=== PATIENT | female | born 1955 | race Caucasian/White ===

== ENCOUNTER 2016-12-26 17:03 | Inpatient (IN) | payer MEDICARE, MEDICAID ==
[~2016-12-26] VITALS: Ht 166.4 cm; Wt 82.0 kg
[~2016-12-26 17:03] MED LIST: ADULT LOW DOSE81 M1 PO; ADVAIR 25028 BLISTER INH; ADVIL200 MG; AGGRENOX CAP1 BOTTLE; ALAWAY10 M1 EACH EYE; AMBIEN5 M1 PO; AMBIEN5 MG PO; AMITRIPTYLINE H25 MG; AMOXICILLIN500 M2 PO; AMOXICILLIN500 MG; AMPICILLIN TRI500 M1 PO; AMPICILLIN500 MG PO; ANTIBIOTIC; ASPIR 8181 MG; ASPIRIN325 MG; ASPIRIN325 MG PO; ASPIRIN81 MG PO; ASTELIN137 MCG NS; ASTEPRO205.5 MCG/ NS; ATENOLOL25 MG PO; ATIVAN0.5 MG PO; ATIVAN1 MG; ATIVAN2 MG PO; ATORVASTATIN CA40 M1 PO; ATROVENT HFA1 PUFF INH; AUGMENTIN; AUGMENTIN 875-1 EAC1 PO; AUGMENTIN 875-1 EAC2 PO; AUGMENTIN 875-11 TAB PO; AUGMENTIN875 MG PO; AVENTYL HCL25 MG; AVINZA90 MG; BACLOFEN; BACLOFEN10 MG; BACLOFEN10 MG PO; BACTRIM DS TAB1 EAC2 PO; BACTRIM DS TABL1 TAB; BETAGAN5 ML EACH EYE; BETAGAN5 ML OP; BISCOLAX10 MG RC; BUDEPRION SR150 MG; CARBAMAZEPINE200 MG; CARVEDILOL12.5 MG PO; CEFAZOLIN SODIUM1 GM IV; CEFDINIR300 MG PO; CENTURY PO; CERTA PLUS TAB1 EACH PO; CERTAVITE W/LU1 EACH PO; CERTAVITE-LUTE1 EAC2 PO; CETIRIZINE HCL10 M1 PO; CIPRO500 M1 PO; CIPRODEX OTIC7.5 M1 OT; CLARITIN10 M8 PO; CLARITIN10 MG; CLONAZEPAM1 M1 PO; CLOPIDOGREL75 M1 PO; COLACE100 M1 PO; COREG12.5 M1 PO; COREG12.5 MG PO; COREG25 M1 PO; COREG6.25 MG PO; COUGHTAB200 M1 PO; CRANBERRY200 M1 PO; CYCLOBENZAPRINE10 M1 PO; CYMBALTA60 M1 PO; CYMBALTA60 MG PO; DECONGEST PO; DEPAKENE250 MG; DEPAKOTE ER250 MG; DEPAKOTE ER250 MG PO; DEPAKOTE250 MG PO; DETROL LA2 MG PO; DIFLUCAN150 MG PO; DILAUDID2 M1 PO; DITROPAN XL5 M3 PO; DOC-Q-LACE100 MG; DULCOLAX10 MG RC; DULOXETINE HCL60 M1 PO; DUONEB 2.5-0.5 M3 ML IH; EFFEXOR XR150 MG; EFFEXOR XR150 MG PO; EFFEXOR XR150 MG/TAB PO; EFFEXOR75 MG; EFFEXOR75 MG PO; EFFIENT10 MG/TAB PO; ELAVIL25 MG; FENTANYL1 EA11 TP; FENTANYL1 EAC3 TD; FENTANYL1 PATC; FLEXERIL10 MG; FLEXERIL10 MG PO; FLOMAX0.4 M1 PO; FLONASE ALLERG9.9 ML NS; FLONASE16 GM; FLONASE16 GM NS; FLUTICASONE PRO16 G1 INH; FUROSEMIDE20 MG PO; FUROSEMIDE40 M1 PO; GABAPENTIN300 MG PO; GABAPENTIN600 MG PO; GAS RELIEF125 M4 PO; GUAIFENESIN400 M1 PO; HALOPERIDOL0.5 MG PO; HIPREX1 GM PO; HYCOTUSS EXPEC480 ML PO; HYDROCODON-ACE1 EAC5 PO; HYOSCYAMINE0.125 M3 SL; IMDUR30 MG; IPRAT-ALBUT 0.5-3 ML IH; ISOSORBIDE DINI20 M1 PO; JUVEN PACKET1 EACH PO; K-DUR20 ME1 PO; K-DUR20 MEQ PO; KEFLEX500 MG; KLONOPIN0.5 MG; KLONOPIN1 MG; KLONOPIN1 MG PO; KLONOPIN2 MG; KLONOPIN2 MG PO; KLOR-CON M2020 MEQ; LACTASE ENZ PO; LACTASE ENZYME1 TAB PO; LASIX20 M1 PO; LASIX20 MG; LASIX20 MG PO; LASIX40 M1 PO; LASIX40 MG; LASIX40 MG PO; LEVAQUIN500 MG PO; LEVAQUIN750 M1 PO; LEVOXYL75 MCG PO; LIDODERM30 EA TP; LIPITOR40 M1 PO; LISINOPRIL10 MG; LISINOPRIL10 MG PO; LISINOPRIL2.5 MG PO; LISINOPRIL5 MG; LOPRESSOR50 MG; LOPRESSOR50 MG PO; LORAZEPAM PO; LORAZEPAM2 MG IM; LORAZEPAM2 MG/ML; LORTAB 5/500 TA1 TAB; LYRICA100 MG PO; LYRICA50 MG PO; LYRICA75 MG; MAALOX SUSPENSI30 ML PO; MAGNESIUM CITR296 M1 PO; MEGACE400 MG/10; MELATIN3 MG PO; MELATONIN5 M7 PO; MELOXICAM7.5 M1 PO; METAMUCIL660 GM PO; METHADONE10 MG/ML PO; MIRALAX17 G2 PO; MORPHINE S20 MG/1 M1 PO; MORPHINE SULFAT30 M7 PO; MS CONTIN30 MG; MS CONTIN60 MG; MUCINEX DM ER1 EAC1 PO; MUCINEX100 MG PO; MUCINEX600 MG; MUCINEX600 MG PO; MULTIVITAMIN1 CAP; MYRBETRIQ25 M1 PO; NASACORT10.8 M1; NASONEX17 G1; NEURONTIN100 M1 PO; NEURONTIN100 MG; NEURONTIN300 M1 PO; NEURONTIN300 MG PO; NICOTINE TD; NITROGLYCERIN0.3 MG SL; NITROGLYCERIN0.4 M2 SL; NITROGLYCERIN0.4 MG SL; NITROQUICK0.4 MG SL; NITROSTAT0.4 MG SL; NON ASPIRIN650 MG PO; NORCO 5/325 TAB1 TAB PO; NORCO 5/3251 TA1 PO; NORCO 7.5-3251 EACH PO; NORFLEX100 MG PO; NORFLEX100 MG/TA1 PO; NORTRIPTYLIHNE25 MG; NORTRIPTYLINE H50 MG; NORTRIPTYLINE H50 MG PO; NYSTATIN15 GM TP; OMEPRAZOLE20 MG PO; OMEPRAZOLE40 M2 PO; OMNICEF300 MG; ORPHENADRINE C100 MG PO; OXYBUTYNIN CHLOR5 M2 PO; OXYBUTYNIN CHLOR5 M3 PO; OXYCODONE HCL5 M1 PO; PANTOPRAZOLE SO40 M3 PO; PERCOCET 10-321 EACH PO; PERCOCET 5-3251 EACH PO; PLAVIX75 M1 PO; PLAVIX75 MG; PLAVIX75 MG PO; PRILOSEC20 MG PO; PRIMIDONE50 M1 PO; PRINIVIL20 MG; PRINIVIL5 M1 PO; PROAIR HFA8.5 GM INH; PROPOXACET N; PROVIGIL100 MG PO; PROVIGIL200 MG; PROVIGIL200 MG PO; Q-TUSSIN100 MG/5 M; RANEXA500 MG PO; SIMVASTATIN10 MG PO; SINGULAIR10 M1 PO; SINGULAIR10 MG PO; SPIRIVA18 MC1 IH; TEGRETOL200 MG; TIMOPTIC2.5 M; TIZANADINE HCL4 MG PO; TOPAMAX100 MG; TOPAMAX25 MG PO; TOPAMAX50 MG; TOPAMAX50 MG PO; TOPROL XL25 MG; TRAMADOL HCL50 MG; TRILEPTAL300 MG; TROSPIUM CHLORI20 M1 PO; TYLENOL EXTRA500 M1 PO; TYLENOL325 M2 PO; TYLENOL650 MG PO; TYSABRI300 MG/15; ULTRAM50 MG PO; VALIUM2 M1 PO; VALIUM2 MG PO; VENTOLIN HFA18 GM IH; VITAMIN C500 M3 PO; VITAMIN C500 MG PO; WELLBUTRIN SR150 MG; XANAX0.25 M1 PO; ZANAFLEX2 M PO; ZANAFLEX4 M PO; ZANAFLEX4 M1 PO; ZESTRIL10 MG PO; ZESTRIL2.5 M2 PO; ZESTRIL2.5 M3 PO; ZITHROMAX250MG Z-PAK; ZOCOR10 MG PO; ZOCOR40 MG; ZOCOR40 MG PO; ZYRTEC10 M7 PO; ZYRTEC1010 PO; [UNRECOGNIZED DRUG - CODE] VG; [UNRECOGNIZED DRUG - OTHER]; [UNRECOGNIZED DRUG - OTHER] NS; [UNRECOGNIZED DRUG - OTHER] PO; [UNRECOGNIZED DRUG - REMARK]; [UNRECOGNIZED DRUG - REMARK]
[2016-12-26 17:59] LABS: BASO % 0.4 % (0-2); EOSINOPHIL ABSOLUTE COUNT 0.2 tho/cmm (0.0-0.7); HCT-HEMATOCRIT 42.7 % (34.0-49.0); HGB-HEMOGLOBIN 14.3 gm/dl (12.0-15.5); IMMATURE GRANULOCYTES ABSOLUTE 0.02 tho/cmm (0-0.03); IMMATURE GRANULOCYTES PERCENT 0.2 % (0-0.3); LYMPH % 16.6 % (20-45); LYMPH ABSOLUTE COUNT 1.6 tho/cmm (0.8-4.5); MCH (MEAN CORPUSCULAR HGB) 27.8 pg (28.0-32.0); MCHC MEAN CORPUSCULAR HGB CONC 33.5 % (32.0-36.0); MCV (MEAN CELL VOLUME) 82.9 fl (82.0-96.0); MEAN PLATELET VOLUME 11.2 cmc (9.4-12.4); MONO % 7.1 % (0-12); MONOCYTE ABSOLUTE COUNT 0.7 tho/cmm (0.0-1.2); NEUTROPHIL ABSOLUTE COUNT 7.2 tho/cmm (1.6-8.0); NEUTROPHIL-AUTOMATED 7.2 tho/cmm (1.6-8.0); NEUTROPHILS % 73.7 % (40-80); PLATELET COUNT 268 tho/cmm (150-450); RED BLOOD COUNT 5.15 mil/cmm (4.00-5.20); RED CELL DISTRIBUTION WIDTH 16.3 % (12.4-16.4); WHITE BLOOD COUNT 9.8 tho/cmm (4.0-10.0)
[2016-12-26 18:05] LABS: PROTHROMBIN TIME 11.9 SECONDS (9.0-13.6)
[2016-12-26 18:12] LABS: URINE APPEARANCE CLOUDY; URINE BILIRUBIN NEGATIVE (NEG); URINE BLOOD MODERATE (NEG); URINE COLOR PALE YELLOW; URINE GLUCOSE (UA) NEGATIVE (NEG); URINE KETONE NEGATIVE (NEG); URINE LEUKOCYTE ESTERASE POSITIVE (NEG); URINE NITRITE POSITIVE (NEG); URINE PROTEIN MODERATE (NEG); URINE SPECIFIC GRAVITY 1.005 (1.003-1.030)
[2016-12-26 18:20] LABS: URINE AMORPHOUS 3+; URINE BACTERIA 1+; URINE EPITHELIAL CELLS 0 /[HPF] (0-10); URINE WBC 25-30 /[HPF] (0-5)
[2016-12-26 18:20] LABS: ALB/GLOB RATIO 0.9 (0.8-2.0); ALBUMIN 3.3 g/dl (3.5-5.0); ALKALINE PHOSPHATASE 91 U/L (33-138); ALT/SGPT 16 U/L (12-78); ANION GAP 11 mmol/L (0-20); BILIRUBIN,TOTAL 0.3 mg/dl (0-1.5); BLOOD UREA NITROGEN 12 mg/dl (6-24); CALCIUM 8.2 mg/dl (8.5-10.5); CARBON DIOXIDE-VENOUS 27 mmol/L (22-32); CHLORIDE 108 mmol/l (96-110); CREATININE 0.95 mg/dl (0.50-1.10); GLUCOSE 108 mg/dL (70-110); LIPASE 131 U/L (73-393); POTASSIUM 3.1 mmol/L (3.7-5.1); SODIUM 143 mmol/L (135-145); eGFR VALUE FOR BLACK 74 mL/Min
[2016-12-26 18:22] LABS: AST/SGOT <5 U/L (10-40)
[2016-12-26] MEDS ORDERED: TYLENOL EXTRA500 M1 PO (19:33)
[2016-12-26] MEDS ORDERED: [UNRECOGNIZED DRUG - OTHER] PO (19:34)
[2016-12-26] MEDS ORDERED: ATROVENT HFA1 PUFF INH (19:35)
[2016-12-26] MEDS ORDERED: XANAX0.25 M1 PO (19:35)
[2016-12-26] MEDS ORDERED: ALAWAY10 M1 OP (19:35)
[2016-12-26] MEDS ORDERED: CETIRIZINE HCL10 M1 PO (19:36)
[2016-12-26] MEDS ORDERED: THERA-M1 EAC1 PO (19:36)
[2016-12-26] MEDS ORDERED: DOCUSATE SODIU100 M2 PO (19:37)
[2016-12-26] MEDS ORDERED: FUROSEMIDE40 M2 PO (19:39)
[2016-12-26] MEDS ORDERED: DULCOLAX10 MG PR (19:39)
[2016-12-26] MEDS ORDERED: GUAIFENESIN200 M3 PO (19:40)
[2016-12-26] MEDS ORDERED: LIPITOR40 M1 PO (19:41)
[2016-12-26] MEDS ORDERED: LYRICA200 M1 PO (19:41)
[2016-12-26] MEDS ORDERED: ALBUTEROL2.5 MG/3 M INH (19:41)
[2016-12-26] MEDS ORDERED: METHENAMINE HIPP1 G1 PO (19:42)
[2016-12-26] MEDS ORDERED: MELATONIN5 M5 PO (19:42)
[2016-12-26] MEDS ORDERED: SINGULAIR10 M1 PO (19:42)
[2016-12-26] MEDS ORDERED: NASACORT10.8 M1 (19:42)
[2016-12-26] MEDS ORDERED: NASONEX17 G1 (19:43)
[2016-12-26] MEDS ORDERED: OMEPRAZOLE20 M4 PO (19:44)
[2016-12-26] MEDS ORDERED: NITROGLYCERIN0.4 M2 SL (19:44)
[2016-12-26] MEDS ORDERED: ZOFRAN4 M2 PO (19:45)
[2016-12-26] MEDS ORDERED: OXYCODONE-ACET1 EAC4 PO (19:45)
[2016-12-26] MEDS ORDERED: UROCIT-K10 ME1 PO (19:46)
[2016-12-26] MEDS ORDERED: OXYCONTIN10 M2 PO (19:46)
[2016-12-26] MEDS ORDERED: SUDAFED30 M2 PO (19:47)
[2016-12-26] MEDS ORDERED: VENTOLIN HFA18 G2 PO (19:47)
[2016-12-27 06:18] LABS: BASO % 0.4 % (0-2); EOS % 2.9 % (0-7); EOSINOPHIL ABSOLUTE COUNT 0.3 tho/cmm (0.0-0.7); HGB-HEMOGLOBIN 12.7 gm/dl (12.0-15.5); IMMATURE GRANULOCYTES ABSOLUTE 0.03 tho/cmm (0-0.03); IMMATURE GRANULOCYTES PERCENT 0.3 % (0-0.3); LYMPH % 20.7 % (20-45); LYMPH ABSOLUTE COUNT 2.1 tho/cmm (0.8-4.5); MCH (MEAN CORPUSCULAR HGB) 27.3 pg (28.0-32.0); MCHC MEAN CORPUSCULAR HGB CONC 32.6 % (32.0-36.0); MCV (MEAN CELL VOLUME) 83.7 fl (82.0-96.0); MONO % 8.3 % (0-12); MONOCYTE ABSOLUTE COUNT 0.9 tho/cmm (0.0-1.2); NEUTROPHILS % 67.4 % (40-80); PLATELET COUNT 240 tho/cmm (150-450); RED BLOOD COUNT 4.66 mil/cmm (4.00-5.20); RED CELL DISTRIBUTION WIDTH 16.6 % (12.4-16.4); WHITE BLOOD COUNT 10.3 tho/cmm (4.0-10.0)
[2016-12-27 06:29] LABS: ALB/GLOB RATIO 0.9 (0.8-2.0); ALKALINE PHOSPHATASE 81 U/L (33-138); ALT/SGPT 14 U/L (12-78); ANION GAP 8 mmol/L (0-20); AST/SGOT 9 U/L (10-40); BLOOD UREA NITROGEN 12 mg/dl (6-24); CALCIUM 7.7 mg/dl (8.5-10.5); CARBON DIOXIDE-VENOUS 26 mmol/L (22-32); CHLORIDE 108 mmol/l (96-110); CREATININE 0.84 mg/dl (0.50-1.10); GLUCOSE 90 mg/dL (70-110); POTASSIUM 3.1 mmol/L (3.7-5.1); SODIUM 139 mmol/L (135-145); eGFR VALUE FOR BLACK 86 mL/Min
[2016-12-27 06:44] LABS: BILIRUBIN,TOTAL 0.5 mg/dl (0-1.5)
[2016-12-27 06:46] LABS: ESR-ERYTHROCYTE SED RATE 15 mm/hr (0-30)
[2016-12-27] MEDS ORDERED: COLACE100 M1 PO (14:45)
[2016-12-27] MEDS ORDERED: LASIX40 M1 PO (14:46)
[2016-12-27] MEDS ORDERED: FLONASE ALLERG9.9 ML (14:59)
[2016-12-27] MEDS ORDERED: PLAVIX75 M1 PO (15:00)
[2016-12-27] MEDS ORDERED: VALIUM2 M1 PO (15:00)
[2016-12-27] MEDS ORDERED: CYMBALTA30 M1 PO (15:02)
[2016-12-27] MEDS ORDERED: ULTRAM50 M1 PO (15:04)
[2016-12-27] MEDS ORDERED: MYRBETRIQ25 M1 PO (15:04)
[2016-12-27] MEDS ORDERED: ASPIRIN81 M1 PO (15:05)
[2016-12-27] MEDS ORDERED: VITAMIN C500 M3 PO (15:06)
[2016-12-28 04:55] LABS: ANION GAP 14 mmol/L (0-20); BLOOD UREA NITROGEN 10 mg/dl (6-24); CALCIUM 8.1 mg/dl (8.5-10.5); CARBON DIOXIDE-VENOUS 25 mmol/L (22-32); CHLORIDE 109 mmol/l (96-110); CREATININE 0.89 mg/dl (0.50-1.10); POTASSIUM 3.8 mmol/L (3.7-5.1); SODIUM 144 mmol/L (135-145); eGFR VALUE FOR BLACK 81 mL/Min
[2016-12-28 05:15] LABS: GLUCOSE 151 mg/dL (70-110)
[2016-12-28 14:15] LABS: BAL APPEARANCE CLOUDY (CLEAR); BAL COLOR PINK (COLORLESS)
[2016-12-28 14:18] LABS: BAL EOSINOPHILS 0 %; BAL LYMPHOCYTES 3 %; BAL NEUTROPHILS 6 %
[2016-12-29 05:33] LABS: HGB-HEMOGLOBIN 12.2 gm/dl (12.0-15.5); IMMATURE GRANULOCYTES ABSOLUTE 0.04 tho/cmm (0-0.03); IMMATURE GRANULOCYTES PERCENT 0.3 % (0-0.3); LYMPH ABSOLUTE COUNT 0.7 tho/cmm (0.8-4.5); MCH (MEAN CORPUSCULAR HGB) 27.5 pg (28.0-32.0); MCV (MEAN CELL VOLUME) 83.3 fl (82.0-96.0); MEAN PLATELET VOLUME 11.1 cmc (9.4-12.4); MONO % 3.9 % (0-12); MONOCYTE ABSOLUTE COUNT 0.6 tho/cmm (0.0-1.2); NEUTROPHIL ABSOLUTE COUNT 12.9 tho/cmm (1.6-8.0); NEUTROPHIL-AUTOMATED 12.9 tho/cmm (1.6-8.0); NEUTROPHILS % 90.8 % (40-80); PLATELET COUNT 263 tho/cmm (150-450); RED BLOOD COUNT 4.44 mil/cmm (4.00-5.20); RED CELL DISTRIBUTION WIDTH 16.5 % (12.4-16.4); WHITE BLOOD COUNT 14.2 tho/cmm (4.0-10.0)
[2016-12-29 06:00] LABS: ALB/GLOB RATIO 0.9 (0.8-2.0); ALBUMIN 3.1 g/dl (3.5-5.0); ALKALINE PHOSPHATASE 70 U/L (33-138); ALT/SGPT 16 U/L (12-78); ANION GAP 8 mmol/L (0-20); AST/SGOT 10 U/L (10-40); BILIRUBIN,TOTAL 0.5 mg/dl (0-1.5); BLOOD UREA NITROGEN 15 mg/dl (6-24); CALCIUM 7.8 mg/dl (8.5-10.5); CARBON DIOXIDE-VENOUS 29 mmol/L (22-32); CHLORIDE 109 mmol/l (96-110); CREATININE 1.09 mg/dl (0.50-1.10); GLUCOSE 159 mg/dL (70-110); POTASSIUM 3.5 mmol/L (3.7-5.1); SODIUM 142 mmol/L (135-145); eGFR VALUE FOR BLACK 63 mL/Min
[2016-12-29] MEDS ORDERED: BACTRIM DS TAB1 EAC2 PO (11:02)
[2016-12-29] MEDS ORDERED: KEFLEX500 M4 PO (13:44)
[2016-12-29] MEDS ORDERED: IPRAT-ALBUT 0.5-3 ML NEB (14:16)
[2016-12-29] MEDS ORDERED: ANORO ELLIPTA1 EAC1 INH (14:17)
[2016-12-29] MEDS ORDERED: PREDNISONE10 M1 PO (14:18)
[2016-12-29] MEDS ORDERED: NICOTINE PATCH1 EAC2 TP (14:19)
== END 2016-12-29 14:37 | disposition home health service (06) | DRG 167 ==
LOC: EDMED → EDBD 17:03 → EDMED 17:03 → EMR2 21:16 → PCUB 21:16
PROVIDERS: Emergency Medicine; Family Medicine; Internal Medicine Pulmonary Disease; ADMIT Internal Medicine
PROC: 02HV33Z Insertion of Infusion Device into Superior Vena Cava, Percutaneous Approach (ICD-10-PCS; 2016-12-26)
PROC: 0B9C8ZX Drainage of Right Upper Lung Lobe, Via Natural or Artificial Opening Endoscopic, Diagnostic (ICD-10-PCS; principal; 2016-12-28)
DX: R04.2 Hemoptysis (principal); L03.115 Cellulitis of right lower limb; J40 Bronchitis, not specified as acute or chronic; G35 Multiple sclerosis; N31.9 Neuromuscular dysfunction of bladder, unspecified; J44.9 Chronic obstructive pulmonary disease, unspecified; Z72.0 Tobacco use
CPT/HCPCS: C1751; J1956; J2543; J2920; J3370; J3480; J7030; J7050; Q9967